=== PATIENT | male | born 1960 | race Asian ===

== ENCOUNTER 2018-01-14 06:03 | Inpatient (IN) | payer MEDICAID ==
[~2018-01-14] VITALS: Ht 162.6 cm; Wt 79.0 kg
[~2018-01-14 06:03] MED LIST: DOCU-28 PO; HYDR-569 PO; HYDR25SU32 RC; PHEN51GE TP
[2018-01-14] MEDS ORDERED: normal saline 1000ML IV soln IVB ONE (06:35)
[2018-01-14] MEDS ORDERED: HYDROmorphone inj. 0.5 MG/0.5 ML DISP.SYRIN IV PRN (06:35)
[2018-01-14] MEDS ORDERED: proCHLORperazine 10 MG/2 ml inj IV ONE (06:35)
[2018-01-14] MEDS: normal saline 1000ML IV soln IVB ONE ×2 (06:35→06:46)
[2018-01-14 06:46] LABS: BASOPHILS % (AUTO) 0.3 % (0-1); EOSINOPHILS # (AUTO) 0.7 X10'3 (0-0.9); EOSINOPHILS % (AUTO) 6.1 % (0-6); HEMATOCRIT 39.2 % (42.0-52.0); LYMPHOCYTES # (AUTO) 1.9 X10'3 (1.1-4.8); LYMPHOCYTES % (AUTO) 16.7 % (21-51); MEAN CORPUSCULAR HEMOGLOBIN 32.2 PG (27.0-31.0); MEAN CORPUSCULAR HGB CONC 33.1 % (33.0-36.5); MEAN CORPUSCULAR VOLUME 97.4 FL (78-98); MEAN PLATELET VOLUME 7.5 FL (7.4-10.4); MONOCYTES % (AUTO) 8.7 % (2-12); NEUTROPHILS # (AUTO) 7.7 X10'3 (1.8-7.7); NEUTROPHILS % (AUTO) 68.2 % (42-75); PLATELET COUNT 339 X10'3 (140-440); RED BLOOD COUNT 4.03 X10'6 (4.70-6.10); RED CELL DISTRIBUTION WIDTH 18.5 % (11.5-14.5); WHITE BLOOD COUNT 11.3 X10'3 (4.5-11.0)
[2018-01-14] MEDS: morphine 4 MG/ML inj SYRINge IV PRN ×2 (06:56→07:52)
[2018-01-14 07:01] LABS: ALANINE AMINOTRANSFERASE 22 U/L (12-78); ALBUMIN 3.6 G/DL (3.4-5.0); ALBUMIN/GLOBULIN RATIO 0.9 (1.1-1.5); ALKALINE PHOSPHATASE 112 IU/L (46-116); ANION GAP 9 (8-16); ASPARTATE AMINO TRANSFERASE 22 U/L (10-37); BILIRUBIN,TOTAL 0.5 MG/DL (0.1-1.0); BLOOD UREA NITROGEN 34 MG/DL (7-18); CHLORIDE 95 MMOL/L (99-107); CREATININE 6.77 MG/DL (0.60-1.10); GLUCOSE 114 MG/DL (70-104); LIPASE 489 U/L (73-393); POTASSIUM 4.6 MMOL/L (3.5-5.1); SODIUM 140 MMOL/L (135-145); TOTAL CARBON DIOXIDE 35.9 MMOL/L (24-32); TOTAL PROTEIN 7.4 G/DL (6.4-8.2); eGFR 8 ML/MIN
[2018-01-14] MEDS ORDERED: CLOP75TA35 PO (09:35)
[2018-01-14] MEDS ORDERED: ISON300T4 PO (09:35)
[2018-01-14] MEDS ORDERED: METO5TAB98 PO (09:35)
[2018-01-14] MEDS ORDERED: morphine 4 MG/ML inj SYRINge IV PRN (09:35)
[2018-01-14] MEDS ORDERED: ASPI-1264 PO (09:35)
[2018-01-14] MEDS ORDERED: acetaminophen 325mg tablet PO PRN (09:35)
[2018-01-14] MEDS ORDERED: CALC668T PO (09:35)
[2018-01-14] MEDS ORDERED: CINA30TA PO (09:35)
[2018-01-14] MEDS ORDERED: CARV-50 PO (09:35)
[2018-01-14] MEDS ORDERED: ATOR80TA PO (09:35)
[2018-01-14] MEDS ORDERED: ondansetron/PF 4mg/2ml inj IV PRN (09:35)
[2018-01-14] MEDS ORDERED: HYDROcodone/acetaminophen 10/325mg tab PO PRN (09:35)
[2018-01-14 11:27] VITALS: BP 154/89
[2018-01-14 15:00] VITALS: BP 123/70
[2018-01-14 18:00] VITALS: BP 116/61
[2018-01-14] MEDS ORDERED: CALCIUM ACETATE PO SCH (18:00)
[2018-01-14] MEDS: calcium acetate 667mg (PhosLO) capsule PO SCH (18:43)
[2018-01-14] MEDS: heparin, porcine 5000 units/ml vial SQ SCH (20:37)
[2018-01-14] MEDS: docusate sod 100mg capsule PO SCH (20:38)
[2018-01-14] MEDS: carvedilol 6.25mg tablet PO SCH (20:38)
[2018-01-14] MEDS ORDERED: atorvastatin 20mg tablet PO SCH (21:00)
[2018-01-14 22:00] VITALS: BP 146/85
[2018-01-15 02:00] VITALS: BP 119/69
[2018-01-15 05:35] LABS: BASOPHILS # (AUTO) 0.1 X10'3 (0-0.2); BASOPHILS % (AUTO) 0.7 % (0-1); EOSINOPHILS # (AUTO) 0.8 X10'3 (0-0.9); EOSINOPHILS % (AUTO) 8.1 % (0-6); HEMATOCRIT 36.1 % (42.0-52.0); HEMOGLOBIN 12.1 g/dl (14.0-17.9); LYMPHOCYTES # (AUTO) 1.8 X10'3 (1.1-4.8); LYMPHOCYTES % (AUTO) 18.7 % (21-51); MEAN CORPUSCULAR HEMOGLOBIN 32.5 PG (27.0-31.0); MEAN CORPUSCULAR HGB CONC 33.4 % (33.0-36.5); MEAN CORPUSCULAR VOLUME 97.2 FL (78-98); MEAN PLATELET VOLUME 7.7 FL (7.4-10.4); MONOCYTES # (AUTO) 0.9 X10'3 (0-0.9); MONOCYTES % (AUTO) 9.1 % (2-12); NEUTROPHILS # (AUTO) 6.3 X10'3 (1.8-7.7); NEUTROPHILS % (AUTO) 63.4 % (42-75); PLATELET COUNT 294 X10'3 (140-440); RED BLOOD COUNT 3.72 X10'6 (4.70-6.10); RED CELL DISTRIBUTION WIDTH 17.6 % (11.5-14.5); WHITE BLOOD COUNT 9.9 X10'3 (4.5-11.0)
[2018-01-15 05:52] LABS: ALANINE AMINOTRANSFERASE 12 U/L (12-78); ALBUMIN 3.2 G/DL (3.4-5.0); ALBUMIN/GLOBULIN RATIO 0.9 (1.1-1.5); ALKALINE PHOSPHATASE 100 IU/L (46-116); AMYLASE 216 U/L (25-115); ANION GAP 8 (8-16); ASPARTATE AMINO TRANSFERASE 10 U/L (10-37); BILIRUBIN,TOTAL 0.6 MG/DL (0.1-1.0); BLOOD UREA NITROGEN 52 MG/DL (7-18); BUN/CREATININE RATIO 5.7 (5.4-32.0); CALCIUM 9.2 MG/DL (8.5-10.1); CHLORIDE 97 MMOL/L (99-107); CREATININE 9.16 MG/DL (0.60-1.10); GLUCOSE 96 MG/DL (70-104); LIPASE 302 U/L (73-393); MAGNESIUM 1.8 MG/DL (1.5-2.4); POTASSIUM 4.6 MMOL/L (3.5-5.1); SODIUM 140 MMOL/L (135-145); TOTAL CARBON DIOXIDE 34.8 MMOL/L (24-32); TOTAL PROTEIN 6.7 G/DL (6.4-8.2); eGFR 6 ML/MIN
[2018-01-15 06:00] VITALS: BP 142/82
[2018-01-15 06:40] LABS: CLARITY,URINE CLEAR (Clear); COLOR,URINE YELLOW (Yellow); GLUCOSE, URINE 100 mg/dl (Neg); KETONES,URINE NEGATIVE (Neg); LEUKOCYTE ESTERASE ,URINE NEGATIVE (Neg); NITRITES, URINE NEGATIVE (Neg); OCCULT BLOOD,URINE TRACE-INTACT (Neg); PROTEIN,URINE 30 mg/dl (Neg); UROBILINOGEN,URINE 0.2 E.U/dL (0.2-1.0)
[2018-01-15 06:56] LABS: UA COLLECTION TYPE NON-SPECIFIED
[2018-01-15 06:57] LABS: BACTERIA,URINE NONE SEEN /HPF (Neg); MUCUS STRANDS NONE SEEN /LPF (Neg); RBC,URINE 0-2 /HPF (0-2); SQUAMOUS EPITHELIAL CELL,UR FEW /LPF (FEW); WBC,URINE NONE SEEN /HPF (0-4)
[2018-01-15] MEDS: heparin, porcine 5000 units/ml vial SQ SCH (07:51)
[2018-01-15] MEDS: carvedilol 6.25mg tablet PO SCH (07:51)
[2018-01-15] MEDS: docusate sod 100mg capsule PO SCH (07:51)
[2018-01-15] MEDS: calcium acetate 667mg (PhosLO) capsule PO SCH ×3 (07:51→17:46)
[2018-01-15] MEDS ORDERED: heparin 1,000 units/ml 10ml inj IV ONE (08:00)
[2018-01-15] MEDS ORDERED: clopidogrel 75mg tablet PO SCH (08:00)
[2018-01-15] MEDS ORDERED: cinacalcet 30mg tablet PO SCH (08:00)
[2018-01-15] MEDS ORDERED: aspirin 325mg tablet PO SCH (08:00)
[2018-01-15] MEDS ORDERED: normal saline 1000ml 250 ML IV PRN (08:00)
[2018-01-15 11:00] VITALS: BP 99/92
[2018-01-15 15:00] VITALS: BP 125/88
[2018-01-15 17:19] LABS: HEMOGLOBIN A1C 5.2 % (4.5-6.2)
== END 2018-01-15 18:00 | disposition home or self-care (01) | DRG 251 ==
LOC: ER 06:03 → ED HOLD 09:31 → PCU 3S 11:27
PROVIDERS: ADMIT Internal Medicine Critical Care Medicine; ATTEND Internal Medicine Critical Care Medicine
PROC: 5A1D70Z Performance of Urinary Filtration, Intermittent, Less than 6 Hours Per Day (ICD-10-PCS; principal; 2018-01-15)
DX: R10.12 Left upper quadrant pain (principal); K85.90 Acute pancreatitis without necrosis or infection, unspecified; E11.22 Type 2 diabetes mellitus with diabetic chronic kidney disease; N18.6 End stage renal disease; I12.0 Hypertensive chronic kidney disease with stage 5 chronic kidney disease or end stage renal disease; D17.9 Benign lipomatous neoplasm, unspecified; I71.2 Thoracic aortic aneurysm, without rupture; D64.9 Anemia, unspecified; K80.20 Calculus of gallbladder without cholecystitis without obstruction; N28.1 Cyst of kidney, acquired; Z79.02 Long term (current) use of antithrombotics/antiplatelets; Z79.82 Long term (current) use of aspirin; Z79.899 Other long term (current) drug therapy; Z90.5 Acquired absence of kidney; Z99.2 Dependence on renal dialysis; Z87.891 Personal history of nicotine dependence
CPT/HCPCS: 36415; 74176; 80053; 81001; 82150; 83036; 83690; 83735; 84100; 85025; 87070; 97116; 97161; A6449; G0257; J0780; J1644; J2270; J7030; J8597